=== PATIENT | female | born 1975 | race Asian ===

== ENCOUNTER 2017-06-18 17:04 | Emergency (ER) | payer MEDICARE, OTHER ==
[~2017-06-18 17:04] MED LIST: ACET325; AMLO5 PO; AMOX500 PO; ANTOXYBENA OT; AZAT50 PO; AZIT250 PO; CALACE667G PO; CALC.25 PO; CEPH500 PO; CINA30 PO; CIPR500 PO; CLON.2 PO; CYCL10 PO; Colace100 MG PO; Dulcolax5 MG PO; ERYT.5TO BOTHEYES; ESOM20 PO; FAMO20 PO; FISH1000 PO; FLUC100 PO; HYDACE25S PR; HYDACE5 PO; HYDCOR1TOA TOP; HYDPAM50 PO; HYDSUL200; HYDSUL200 PO; IBUP600 PO; IBUP800; IRON; LEVFLO250 PO; LEVFLO500 PO; LOPE2C PO; LOSA50 PO; MESA400ER PO; METO50 PO; MULVITMINE; MYCO250 PO; Norco 5-325 Ta1 EACH PO; OMEP20ER PO; ONDA4 PO; OXYACE5T PO; Opcon-A Eye Dro15 M1 OP; POTCHL10ER PO; PRAHYD1AE TOP; PRED1 PO; PRED10; PRED10 PO; PRED20 PO; PRED5; PRED5 PO; PROM25 PO; RXCLIN PO; RXHYDACE PO; SEVEC800 PO; STOMUL; SULTRIDS PO; TEMA15 PO; VELPHORO500 MG PO; VITAMIN D-32000 UNIT PO; Zofran Odt4 MG PO; [UNRECOGNIZED DRUG - REMARK]
[2017-08-02] MEDS ORDERED: OLME20 PO (07:48)
[2017-08-02] MEDS ORDERED: CINA30 PO (07:48)
[2017-08-02] MEDS ORDERED: NEPHRO-VITE RX1 EACH PO (07:49)
[2017-08-02] MEDS ORDERED: TEMA15 PO (07:50)
[2017-08-02] MEDS ORDERED: SEVEC800 PO (07:50)
[2017-08-02] MEDS ORDERED: TUMS DUAL ACTI1 EACH PO (07:51)
== END 2017-06-18 17:28 | disposition left against medical advice (07) ==
LOC: ER 17:04
DX: Z53.21 Procedure and treatment not carried out due to patient leaving prior to being seen by health care provider (principal)

== ENCOUNTER → 2017-06-20 | Outpatient (CLI) | payer MEDICARE, OTHER ==
[~2017-06-20] MED LIST changes: +NEPHRO-VITE RX1 EACH PO; +OLME20 PO; +TUMS DUAL ACTI1 EACH PO
== END | disposition home or self-care (01) ==
LOC: LAB 10:20
DX: Z32.00 Encounter for pregnancy test, result unknown (principal); R51 Headache
CPT/HCPCS: 84703; 85651

== ENCOUNTER → 2017-07-18 | Outpatient (CLI) | payer MEDICARE, OTHER ==
[2017-07-18 10:42] LABS: C-REACTIVE PROTEIN, EXT RANGE <0.290 mg/dL (0.000-0.300)
[2017-07-18 10:47] LABS: Thyroid Stimulating Hormone 0.494 uIU/mL (0.360-4.800)
== END | disposition home or self-care (01) ==
LOC: LAB 09:56
PROVIDERS: Internal Medicine Rheumatology
DX: M32.8 Other forms of systemic lupus erythematosus (principal); E03.9 Hypothyroidism, unspecified
CPT/HCPCS: 84443; 86140

== ENCOUNTER 2017-08-02 | Day surgery (SDC) | END 2017-08-02 11:34 | disposition home or self-care (01) ==

== ENCOUNTER → 2017-08-27 | Outpatient (CLI) | payer MEDICARE, OTHER | END | disposition home or self-care (01) | LOC: LAB 12:54 | DX: E07.9 Disorder of thyroid, unspecified (principal); R94.8 Abnormal results of function studies of other organs and systems | CPT/HCPCS: 84443 ==

== ENCOUNTER 2017-11-12 15:37 | Emergency (ER) | payer MEDICARE, OTHER ==
[~2017-11-12] VITALS: Ht 162.6 cm; Wt 49.9 kg
== END 2017-11-12 19:37 | disposition home or self-care (01) ==
LOC: ER 15:37
DX: E03.9 Hypothyroidism, unspecified (principal); Z88.2 Allergy status to sulfonamides; Z88.8 Allergy status to other drugs, medicaments and biological substances; Z91.09 Other allergy status, other than to drugs and biological substances; Z79.899 Other long term (current) drug therapy
CPT/HCPCS: 99282

== ENCOUNTER → 2017-11-12 | Outpatient (CLI) | payer MEDICARE, OTHER ==
[2017-11-12 13:05] LABS: Thyroxine (T4) 13.3 ug/dL (4.8-13.9)
[2017-11-12 13:28] LABS: Free Thyroxine Index 5.1 % (1.3-4.8)
== END ==
LOC: LAB SHORT 09:30 → LAB 09:30
PROVIDERS: Internal Medicine Nephrology
DX: E24.9 Cushing's syndrome, unspecified (principal); E05.90 Thyrotoxicosis, unspecified without thyrotoxic crisis or storm
CPT/HCPCS: 82533; 84436; 84443; 84479

== ENCOUNTER → 2017-11-26 | Outpatient (CLI) | payer MEDICARE, OTHER ==
[2017-11-27 13:10] LABS: COMPLEMENT C3, SERUM 77 mg/dL (82-167); COMPLEMENT C4, SERUM 15 mg/dL (14-44)
[2017-11-28 11:08] LABS: SMITH ANTIBODIES 1.5 AI (0.0-0.9)
[2017-11-28 12:03] LABS: Antinuclear Antibody Screen Positive (Negative)
[2017-11-30 12:58] LABS: ANA Pattern Homogenous
== END | disposition home or self-care (01) ==
LOC: LAB DAV 12:40
PROVIDERS: Internal Medicine Nephrology
DX: L65.9 Nonscarring hair loss, unspecified (principal)
CPT/HCPCS: 86038; 86039; 86160; 86225; 86235

== ENCOUNTER 2018-02-26 08:51 | Emergency (ER) | payer MEDICARE, OTHER ==
[~2018-02-26] VITALS: Ht 162.6 cm; Wt 49.9 kg
[2018-02-26 09:44] LABS: BASOPHILS ABSOLUTE AUTO 0.08 K/mm3 (0.00-0.23); BASOPHILS PERCENT AUTO 1 % (0-2); EOSINOPHILS ABSOLUTE AUTO 0.14 K/mm3 (0.00-0.68); EOSINOPHILS PERCENT AUTO 2 % (0-6); Hematocrit 31.3 % (33.0-51.0); IMMATURE GRAN ABSOLUTE AUTO 0.13 K/mm3 (0.00-0.10); IMMATURE GRAN PERCENT AUTO 2 % (0-1); LYMPHOCYTES PERCENT AUTO 28 % (21-46); MONOCYTES ABSOLUTE AUTO 0.68 K/mm3 (0.16-1.47); MONOCYTES PERCENT AUTO 9 % (4-13); Mean Corpuscular HGB 29.9 pg (26.0-34.0); Mean Corpuscular HGB Conc 31.9 g/dL (31.5-36.5); Mean Corpuscular Volume 93 fL (80-100); Mean Platelet Volume 10.4 fL (9.1-12.4); NEUTROPHILS ABSOLUTE AUTO 4.24 K/mm3 (1.96-9.15); NEUTROPHILS PERCENT AUTO 58 % (41-73); Platelet Count 259 K/mm3 (150-400); RDW Standard Deviation 47.5 fL (35.1-46.3); Red Blood Cell Count 3.35 M/mm3 (3.80-5.20); White Blood Cell Count 7.27 K/mm3 (4.00-11.30)
[2018-02-26 09:45] LABS: Alanine Aminotransfer (ALT/SGP 74 U/L (12-78); Albumin, Blood 3.4 g/dL (3.4-5.0); Albumin/Globulin Ratio 0.9 (0.8-1.8); Alk Phos 362 U/L (50-136); Anion Gap 10 mmol/L (6-16); Aspartate Aminotrans (AST/SGOT 37 U/L (12-37); Bilirubin, Total 0.2 mg/dL (0.1-1.0); Blood Urea Nitrogen 18 mg/dL (8-24); CO2, Blood 19 mmol/L (21-32); Calcium, Blood 8.7 mg/dL (8.5-10.1); Chloride, Blood 112 mmol/L (98-108); Creatinine, Blood 0.72 mg/dL (0.40-1.00); Globulin, Blood 3.8 g/dL (2.2-4.0); Glomerular Filtration Rate >60 (60-); Glucose, Blood 104 mg/dL (70-99); Sodium, Blood 141 mmol/L (136-145); Total Protein, Blood 7.2 g/dL (6.4-8.2); Troponin I <0.015 ng/mL (0.000-0.040)
[2018-02-26 09:54] LABS: Source, Urine Clean Catch
[2018-02-26 10:07] LABS: Bilirubin, Urine Neg (Neg); Blood, Urine Neg (Neg); Glucose Qualitative, Urine Neg (Neg); Ketones, Urine Neg (Neg); Leukocyte Esterase, Urine 2+ (Neg); Nitrite, Urine Neg (Neg); Protein, Urine Neg (Neg); Specific Gravity, Urine 1.015 (1.003-1.022); Urobilinogen, Urine NORM (Normal)
[2018-02-26 10:35] LABS: Appearance, Urine Clear (Clear); Color, Urine Yellow (P-Yellow)
[2018-02-26 10:37] LABS: Bacteria Rare /hpf; Red Blood Cells, Urine 0-2 /hpf (0-2); Squamous Epithelial Cells Mod /hpf (Few)
== END 2018-02-26 13:47 | disposition home or self-care (01) ==
LOC: ER 08:51
PROVIDERS: Emergency Medicine
DX: M94.0 Chondrocostal junction syndrome [Tietze] (principal); R07.89 Other chest pain; R07.81 Pleurodynia; Z88.2 Allergy status to sulfonamides; Z88.8 Allergy status to other drugs, medicaments and biological substances; Z79.899 Other long term (current) drug therapy; Z79.52 Long term (current) use of systemic steroids; I10 Essential (primary) hypertension
CPT/HCPCS: 36415; 71046; 71260; 80053; 81001; 84484; 85025; 85379; 87086; 93005; 93010; 96361; 96374; 99284-25; J3490; J7120; Q9967

== ENCOUNTER 2018-07-12 10:02 | Day surgery (SDC) | payer MEDICARE, OTHER ==
[2018-07-12] MEDS ORDERED: FAMO20 PO (11:43)
[2018-07-12] MEDS ORDERED: ALPR.25 PO (11:43)
[2018-07-12] MEDS ORDERED: SYNTHROID112 MCG PO (11:44)
[2018-07-12] MEDS ORDERED: METO25ER PO (11:44)
[2018-07-12] MEDS ORDERED: MYCO250 PO (11:45)
[2018-07-12] MEDS ORDERED: TACR1 PO (11:46)
[2018-07-12] MEDS ORDERED: VIRT-PHOS 250250 MG PO (11:46)
== END 2018-07-12 11:54 | disposition home or self-care (01) ==
LOC: ATC 10:02
DX: T86.11 Kidney transplant rejection (principal); T86.91 Unspecified transplanted organ and tissue rejection; Z91.041 Radiographic dye allergy status; Z88.2 Allergy status to sulfonamides
CPT/HCPCS: 96365; J2930; J7050

== ENCOUNTER 2018-07-13 09:58 | Day surgery (SDC) | payer MEDICARE, OTHER ==
[~2018-07-13 09:58] MED LIST changes: +ALPR.25 PO; +METO25ER PO; +SYNTHROID112 MCG PO; +TACR1 PO; +VIRT-PHOS 250250 MG PO
== END 2018-07-13 10:43 | disposition home or self-care (01) ==
LOC: ATC 09:58
DX: T86.11 Kidney transplant rejection (principal); I10 Essential (primary) hypertension; M32.9 Systemic lupus erythematosus, unspecified; E21.2 Other hyperparathyroidism
CPT/HCPCS: 96365; J2930; J7050

== ENCOUNTER 2018-07-14 07:36 | Day surgery (SDC) | payer MEDICARE, OTHER | END 2018-07-14 08:30 | disposition home or self-care (01) | LOC: ATC 07:36 | DX: T86.11 Kidney transplant rejection (principal) | CPT/HCPCS: 96365; J2930; J7050 ==

== ENCOUNTER → 2018-08-08 | Outpatient (CLI) | payer MEDICARE, OTHER ==
[2018-08-08 08:24] LABS: Sodium, Urine 55 mmol/L (20-110)
[2018-08-08 08:28] LABS: Microalbumin, Urine Quant. <5.000 mg/L (0.000-20.000); Protein, Urine Quantitative <5.0 mg/dL (0.0-11.9)
== END | disposition home or self-care (01) ==
LOC: LAB 07:34 → LAB SHORT 07:34
PROVIDERS: Internal Medicine Nephrology
DX: N18.3 Chronic kidney disease, stage 3 (moderate) (principal); D63.1 Anemia in chronic kidney disease; N25.81 Secondary hyperparathyroidism of renal origin; E55.9 Vitamin D deficiency, unspecified; E78.00 Pure hypercholesterolemia, unspecified; R76.9 Abnormal immunological finding in serum, unspecified; R94.5 Abnormal results of liver function studies; R94.6 Abnormal results of thyroid function studies; G60.9 Hereditary and idiopathic neuropathy, unspecified; D51.8 Other vitamin B12 deficiency anemias; D52.8 Other folate deficiency anemias; D50.9 Iron deficiency anemia, unspecified; Z94.0 Kidney transplant status
CPT/HCPCS: 36415; 82043; 84156; 84300

== ENCOUNTER → 2019-05-21 | Outpatient (CLI) | payer MEDICARE, OTHER ==
[2019-05-22 14:06] LABS: HPV 16 Negative (Negative); HPV 18 Negative (Negative); HPV OTHER HR TYPES Negative (Negative)
== END | disposition home or self-care (01) ==
LOC: LAB SHORT 12:22 → LAB 12:22
PROVIDERS: Obstetrics & Gynecology
DX: Z12.4 Encounter for screening for malignant neoplasm of cervix (principal)
CPT/HCPCS: 87624; G0123

== ENCOUNTER → 2020-01-06 | Outpatient (CLI) | payer MEDICARE, OTHER ==
[~2020-01-06] MED LIST changes: +ACETAMINOPHEN500 MG PO; +CALC.25; +CINACALCET HCL30 M1 PO; +METR500 PO; +MYCOPHENOLATE250 MG PO; +PREDNISONE5 MG PO; +TACROLIMUS1 MG PO
[2020-01-09 14:09] LABS: HPV 16 Negative (Negative); HPV 18 Negative (Negative); HPV OTHER HR TYPES Negative (Negative)
== END ==
LOC: LAB SHORT 14:50 → LAB 14:50
PROVIDERS: Physician Assistant
DX: Z01.419 Encounter for gynecological examination (general) (routine) without abnormal findings (principal); N93.9 Abnormal uterine and vaginal bleeding, unspecified; R82.998 Other abnormal findings in urine
CPT/HCPCS: 87086; 87624; G0123

== ENCOUNTER → 2020-07-12 | Outpatient (CLI) | payer MEDICARE, OTHER ==
[2020-07-12 09:58] LABS: Creatinine Urine 40.6 mg/dL (27.00-270.00); Microalbumin, Urine Quant. 16.9 mg/L (0.000-20.000); Protein, Urine Quantitative 7.4 mg/dL (0.0-11.9)
== END ==
LOC: LAB 05:00 → LAB SHORT 05:00
PROVIDERS: Internal Medicine Nephrology
DX: N18.30 Chronic kidney disease, stage 3 unspecified (principal); D63.1 Anemia in chronic kidney disease; N25.81 Secondary hyperparathyroidism of renal origin; E55.9 Vitamin D deficiency, unspecified; E78.00 Pure hypercholesterolemia, unspecified; R76.9 Abnormal immunological finding in serum, unspecified; R94.5 Abnormal results of liver function studies; R94.6 Abnormal results of thyroid function studies
CPT/HCPCS: 81050; 82043; 82570; 84156

== ENCOUNTER → 2020-12-23 | Outpatient (CLI) | payer MEDICARE, OTHER ==
[2020-12-23 21:04] LABS: Percent Saturation 17.3 % (15.0-50.0)
== END | disposition home or self-care (01) ==
LOC: LAB 19:38 → LAB SHORT 19:38
PROVIDERS: Internal Medicine Hematology & Oncology
DX: E61.1 Iron deficiency (principal)
CPT/HCPCS: 82728; 83540; 83550

== ENCOUNTER → 2021-12-21 | Outpatient (CLI) | payer OTHER | END | disposition home or self-care (01) | LOC: LAB 17:54 → LAB SHORT 17:54 | DX: N39.0 Urinary tract infection, site not specified (principal) | CPT/HCPCS: 87077; 87086; 87186 ==

== ENCOUNTER → 2022-03-26 | Outpatient (CLI) | payer OTHER | END | disposition home or self-care (01) | LOC: LAB SHORT 10:47 → LAB 10:47 | DX: J02.9 Acute pharyngitis, unspecified (principal) | CPT/HCPCS: 87081 ==

== ENCOUNTER → 2022-07-23 | Outpatient (CLI) | payer OTHER ==
[2022-07-24 22:19] LABS: Creatinine Urine 36.2 mg/dL (27.00-270.00); Protein, Urine Quantitative 116.9 mg/dL (0.0-11.9)
== END | disposition home or self-care (01) ==
LOC: LAB SHORT 18:00 → LAB 18:00
PROVIDERS: Internal Medicine Nephrology
DX: N18.30 Chronic kidney disease, stage 3 unspecified (principal); D63.1 Anemia in chronic kidney disease; N25.81 Secondary hyperparathyroidism of renal origin; E55.9 Vitamin D deficiency, unspecified; E78.00 Pure hypercholesterolemia, unspecified; R76.9 Abnormal immunological finding in serum, unspecified; R94.5 Abnormal results of liver function studies; R94.6 Abnormal results of thyroid function studies
CPT/HCPCS: 81050; 82043; 82570; 84156

== ENCOUNTER → 2023-01-01 | Outpatient (CLI) | payer OTHER ==
[2023-01-01 11:26] LABS: Protein, Urine Quantitative 50.2 mg/dL (0.0-11.9)
[2023-01-01 11:50] LABS: Creatinine Urine 41.7 mg/dL (27.00-270.00)
== END | disposition home or self-care (01) ==
LOC: LAB SHORT 08:06 → LAB FUT 12-13 16:15
PROVIDERS: Internal Medicine Nephrology
DX: N18.30 Chronic kidney disease, stage 3 unspecified (principal); D63.1 Anemia in chronic kidney disease; N25.81 Secondary hyperparathyroidism of renal origin; E78.00 Pure hypercholesterolemia, unspecified; E55.9 Vitamin D deficiency, unspecified; R76.9 Abnormal immunological finding in serum, unspecified; R94.5 Abnormal results of liver function studies; G60.9 Hereditary and idiopathic neuropathy, unspecified; Z94.0 Kidney transplant status
CPT/HCPCS: 81050; 82043; 82570; 84156

== ENCOUNTER → 2023-04-09 | Outpatient (CLI) | payer OTHER ==
[2023-04-09 19:12] LABS: Creatinine Urine 33.3 mg/dL (27.00-270.00); Protein, Urine Quantitative 182.1 mg/dL (0.0-11.9)
== END | disposition home or self-care (01) ==
LOC: LAB 16:35 → LAB SHORT 16:35 → LAB FUT 04-03 16:30
PROVIDERS: Internal Medicine Nephrology
DX: N18.2 Chronic kidney disease, stage 2 (mild) (principal); D63.1 Anemia in chronic kidney disease; N25.81 Secondary hyperparathyroidism of renal origin; E55.9 Vitamin D deficiency, unspecified; E78.00 Pure hypercholesterolemia, unspecified; R76.9 Abnormal immunological finding in serum, unspecified; R94.5 Abnormal results of liver function studies; R94.6 Abnormal results of thyroid function studies; Z94.0 Kidney transplant status
CPT/HCPCS: 81050; 82043; 82570; 84156

== ENCOUNTER 2023-06-11 16:36 | Emergency (ER) | payer OTHER ==
[~2023-06-11] VITALS: Ht 162.6 cm; Wt 63.5 kg
[2023-06-11 16:44] VITALS: BP 165/128
[2023-06-11 18:23] LABS: BASOPHILS ABSOLUTE AUTO 0.06 K/mm3 (0.00-0.23); BASOPHILS PERCENT AUTO 1 % (0-2); EOSINOPHILS PERCENT AUTO 3 % (0-6); Hematocrit 36.7 % (33.0-51.0); Hemoglobin 12.2 g/dL (11.5-16.0); IMMATURE GRAN ABSOLUTE AUTO 0.04 K/mm3 (0.00-0.10); IMMATURE GRAN PERCENT AUTO 0 % (0-1); LYMPHOCYTES ABSOLUTE AUTO 2.28 K/mm3 (0.84-5.20); LYMPHOCYTES PERCENT AUTO 23 % (21-46); MONOCYTES ABSOLUTE AUTO 0.71 K/mm3 (0.16-1.47); MONOCYTES PERCENT AUTO 7 % (4-13); Mean Corpuscular HGB 26.7 pg (26.0-34.0); Mean Corpuscular HGB Conc 33.2 g/dL (31.5-36.5); Mean Corpuscular Volume 80 fL (80-100); Mean Platelet Volume 11.5 fL (9.1-12.4); NEUTROPHILS ABSOLUTE AUTO 6.55 K/mm3 (1.96-9.15); NEUTROPHILS PERCENT AUTO 66 % (41-73); Platelet Count 298 K/mm3 (150-400); RDW Coefficient Variation 13.1 % (11.7-14.2); RDW Standard Deviation 37.5 fL (35.1-46.3); Red Blood Cell Count 4.57 M/mm3 (3.80-5.20); White Blood Cell Count 9.94 K/mm3 (4.00-11.30)
[2023-06-11 18:38] LABS: Albumin, Blood 3.2 g/dL (3.4-5.0); Albumin/Globulin Ratio 0.7 (0.8-1.8); Bilirubin, Total 0.3 mg/dL (0.1-1.0); Bun/Creatinine Ratio 28.2 (12.0-20.0); Calcium, Blood 10.4 mg/dL (8.5-10.1); Creatinine, Blood 1.49 mg/dL (0.40-1.00); Globulin, Blood 4.8 g/dL (2.2-4.0); Potassium, Blood 4.9 mmol/L (3.5-5.5)
[2023-06-11 19:07] LABS: Source, Urine Clean Catch
[2023-06-11 19:25] LABS: Bilirubin, Urine Neg (Neg); Blood, Urine 3+ (Neg); Glucose Qualitative, Urine Neg (Neg); Ketones, Urine Neg (Neg); Leukocyte Esterase, Urine Neg (Neg); Nitrite, Urine Neg (Neg); Protein, Urine 3+ (Neg); Specific Gravity, Urine 1.015 (1.003-1.022); Urobilinogen, Urine NORM (Normal)
[2023-06-11 19:54] LABS: Appearance, Urine Hazy (Clear); Color, Urine Pale Yellow (P-Yellow)
[2023-06-11 19:55] LABS: Squamous Epithelial Cells Rare /hpf (Few); White Blood Cells, Urine 0-2 /hpf (0-5)
[2023-06-11 19:56] LABS: Amorphous Light (0-Heavy); Bacteria Mod /hpf; Mucus Light (0-Heavy)
== END 2023-06-11 20:28 | disposition home or self-care (01) ==
LOC: ER 16:36
PROVIDERS: Emergency Medicine
DX: T82.868A Thrombosis due to vascular prosthetic devices, implants and grafts, initial encounter (principal); I74.2 Embolism and thrombosis of arteries of the upper extremities; Z88.2 Allergy status to sulfonamides; Z88.8 Allergy status to other drugs, medicaments and biological substances; Z79.899 Other long term (current) drug therapy; Z79.52 Long term (current) use of systemic steroids
CPT/HCPCS: 36415; 80053; 81001; 83605; 85025; 87040; 93971; 99284-25

== ENCOUNTER 2023-06-13 10:09 | Emergency (ER) | payer OTHER ==
[~2023-06-13] VITALS: Ht 162.6 cm; Wt 65.8 kg
[2023-06-13 10:19] VITALS: BP 158/107
[2023-06-13] MEDS ORDERED: Norco 5-325 Ta1 EACH PO (13:19)
== END 2023-06-13 13:37 | disposition home or self-care (01) ==
LOC: ER 10:09
DX: T82.868A Thrombosis due to vascular prosthetic devices, implants and grafts, initial encounter (principal); Z94.0 Kidney transplant status; Z88.2 Allergy status to sulfonamides; Z88.8 Allergy status to other drugs, medicaments and biological substances; Z79.899 Other long term (current) drug therapy
CPT/HCPCS: 99283

== ENCOUNTER → 2023-07-16 | Outpatient (CLI) | payer OTHER ==
[2023-07-16 19:37] LABS: Protein, Urine Quantitative 219.8 mg/dL (0.0-11.9)
== END | disposition home or self-care (01) ==
LOC: LAB SHORT 17:11
PROVIDERS: Internal Medicine Nephrology
DX: N18.30 Chronic kidney disease, stage 3 unspecified (principal); D63.1 Anemia in chronic kidney disease; N25.81 Secondary hyperparathyroidism of renal origin; E55.9 Vitamin D deficiency, unspecified; E78.00 Pure hypercholesterolemia, unspecified; R76.9 Abnormal immunological finding in serum, unspecified; R94.5 Abnormal results of liver function studies; R94.6 Abnormal results of thyroid function studies
CPT/HCPCS: 81050; 82043; 82570; 84156

== ENCOUNTER 2024-03-21 19:35 | Inpatient (IN) | payer OTHER ==
[~2024-03-21] VITALS: Ht 162.6 cm; Wt 59.4 kg
[~2024-03-21 19:35] MED LIST changes: -CALC.25; +VITAMIN D31250 MC2 PO
[2024-03-21] MEDS ORDERED: Ondansetron HCl 2 MG / ML 2ML Vial IV ONE ×2 (19:50→23:00)
[2024-03-21 20:10] LABS: BASOPHILS ABSOLUTE AUTO 0.06 K/mm3 (0.00-0.23); BASOPHILS PERCENT AUTO 1 % (0-2); EOSINOPHILS ABSOLUTE AUTO 0.35 K/mm3 (0.00-0.68); EOSINOPHILS PERCENT AUTO 5 % (0-6); Hematocrit 30.1 % (33.0-51.0); Hemoglobin 9.4 g/dL (11.5-16.0); IMMATURE GRAN ABSOLUTE AUTO 0.03 K/mm3 (0.00-0.10); IMMATURE GRAN PERCENT AUTO 0 % (0-1); LYMPHOCYTES PERCENT AUTO 21 % (21-46); MONOCYTES ABSOLUTE AUTO 0.43 K/mm3 (0.16-1.47); MONOCYTES PERCENT AUTO 6 % (4-13); Mean Corpuscular HGB 25.3 pg (26.0-34.0); Mean Corpuscular HGB Conc 31.2 g/dL (31.5-36.5); Mean Corpuscular Volume 81 fL (80-100); Mean Platelet Volume 10.9 fL (9.1-12.4); NEUTROPHILS ABSOLUTE AUTO 5.19 K/mm3 (1.96-9.15); NEUTROPHILS PERCENT AUTO 68 % (41-73); Platelet Count 337 K/mm3 (150-400); RDW Coefficient Variation 15.1 % (11.7-14.2); Red Blood Cell Count 3.72 M/mm3 (3.80-5.20); White Blood Cell Count 7.66 K/mm3 (4.00-11.30)
[2024-03-21 20:30] LABS: Albumin, Blood 3.2 g/dL (3.4-5.0); Albumin/Globulin Ratio 0.9 (0.8-1.8); Bilirubin, Total 0.4 mg/dL (0.1-1.0); Bun/Creatinine Ratio 16.1 (12.0-20.0); Calcium, Blood 9.9 mg/dL (8.5-10.1); Creatinine, Blood 2.24 mg/dL (0.40-1.00); Globulin, Blood 3.6 g/dL (2.2-4.0); Potassium, Blood 3.9 mmol/L (3.5-5.5); Total Protein, Blood 6.8 g/dL (6.4-8.2)
[2024-03-21] MEDS ORDERED: NS 1,000 ML IV SCH (22:20)
[2024-03-21] MEDS ORDERED: Morphine Sulfate 4 MG/1 ML Injection IV ONE (23:00)
[2024-03-21] MEDS ORDERED: FentaNYL Citrate 50 MCG/ML 2 ML Injection IV ONE (23:20)
[2024-03-21] MEDS ORDERED: K-Dur10 MEQ PO (23:41)
[2024-03-22] VITALS (11 sets, daily range): BP systolic 139–196; BP diastolic 82–121
[2024-03-22] MEDS ORDERED: Acetaminophen 500 MG Tab PO PRN (00:10)
[2024-03-22] MEDS ORDERED: Sodium Bicarb 8.4% 50 mEq Syringe IV ONE (01:00)
[2024-03-22] MEDS ORDERED: Ondansetron 4 MG TAB PO PRN (01:20)
[2024-03-22] MEDS ORDERED: FLU VACC TS2024-25(6MOS UP)/PF 45 MCG/0.5 ML SYRINGE IM SCH (01:20)
[2024-03-22] MEDS ORDERED: Magnesium Hydroxide Conc 10 ML UDC PO PRN (01:20)
[2024-03-22] MEDS ORDERED: Acetaminophen 325 MG TABLET PO PRN (01:25)
[2024-03-22] MEDS ORDERED: NS 1,000 ML IV SCH (01:25)
[2024-03-22] MEDS ORDERED: HydrALAZINE HCl 20 MG / ML 1ML Vial IV PRN ×2 (02:15→12:00)
[2024-03-22] MEDS ORDERED: FentaNYL Citrate 50 MCG/ML 2 ML Injection IV PRN (03:00)
[2024-03-22] MEDS ORDERED: HydrALAZINE HCl 20 MG / ML 1ML Vial IV ONE (04:10)
[2024-03-22] MEDS ORDERED: Labetalol HCL 5 MG/ML 4ML Injection (Single Dose) IV PRN ×2 (05:20→11:55)
[2024-03-22] MEDS ORDERED: Levothyroxine Sodium 0.112 MG Tab PO SCH (06:00)
[2024-03-22] MEDS ORDERED: SODIUM BICARB IV STA (06:27)
[2024-03-22] MEDS ORDERED: SODIUM CHLORIDE 0.45% IV STA (06:27)
--- NOTE | 2024-03-22 06:43 | NUR ---
Shift Summary Pt arrived to this unit from the ED for LUQ pain and N/V. It is possibly renal related, she has a hx of kidney cancer and elevated creatinine. She also has elevated lipase. Her BP was elevated upon arrival, gave PRN hydralazine and 1 hour later it remained the same at 185/115. I called the hospitalist who ordered another 1 time dose of hydralazine and then later ordered a PRN IV labetolol. Pt has been no nautious to keep down pills but she is feeling better this AM. She took Tylenol for a headache and hasn't had emesis since. She is now on Tele running sinus tach, her heart rate has been between 90-120 all night. She is AOX4 and independent in the room. She has a new order for IV Sodium Bicarb, awaiting arrival from pharmacy.
[2024-03-22 08:01] LABS: BASOPHILS ABSOLUTE AUTO 0.03 K/mm3 (0.00-0.23); BASOPHILS PERCENT AUTO 1 % (0-2); EOSINOPHILS ABSOLUTE AUTO 0.07 K/mm3 (0.00-0.68); EOSINOPHILS PERCENT AUTO 1 % (0-6); Hematocrit 26.4 % (33.0-51.0); Hemoglobin 8.2 g/dL (11.5-16.0); IMMATURE GRAN ABSOLUTE AUTO 0.02 K/mm3 (0.00-0.10); IMMATURE GRAN PERCENT AUTO 0 % (0-1); LYMPHOCYTES ABSOLUTE AUTO 0.91 K/mm3 (0.84-5.20); LYMPHOCYTES PERCENT AUTO 15 % (21-46); MONOCYTES PERCENT AUTO 5 % (4-13); Mean Corpuscular HGB 24.7 pg (26.0-34.0); Mean Corpuscular HGB Conc 31.1 g/dL (31.5-36.5); Mean Corpuscular Volume 80 fL (80-100); Mean Platelet Volume 11.1 fL (9.1-12.4); NEUTROPHILS ABSOLUTE AUTO 4.83 K/mm3 (1.96-9.15); NEUTROPHILS PERCENT AUTO 78 % (41-73); Platelet Count 281 K/mm3 (150-400); RDW Coefficient Variation 15.2 % (11.7-14.2); RDW Standard Deviation 43.8 fL (35.1-46.3); Red Blood Cell Count 3.32 M/mm3 (3.80-5.20); White Blood Cell Count 6.16 K/mm3 (4.00-11.30)
[2024-03-22 08:06] LABS: Albumin, Blood 2.6 g/dL (3.4-5.0); Albumin/Globulin Ratio 0.9 (0.8-1.8); Bilirubin, Total 0.3 mg/dL (0.1-1.0); Bun/Creatinine Ratio 16.4 (12.0-20.0); Calcium, Blood 9.2 mg/dL (8.5-10.1); Creatinine, Blood 2.44 mg/dL (0.40-1.00); Globulin, Blood 2.8 g/dL (2.2-4.0); Potassium, Blood 3.8 mmol/L (3.5-5.5); Total Protein, Blood 5.4 g/dL (6.4-8.2)
[2024-03-22] MEDS ORDERED: Famotidine 20 MG Tab PO ONE (09:00)
[2024-03-22] MEDS ORDERED: Tacrolimus 1 MG Cap PO SCH (09:00)
[2024-03-22] MEDS ORDERED: Potassium Chloride 10 Meq Tablet SA PO SCH (09:00)
[2024-03-22] MEDS ORDERED: Enoxaparin 30 MG/0.3 ML SYR SC SCH (09:00)
[2024-03-22] MEDS ORDERED: PredniSONE 5 MG Tab PO SCH (09:00)
[2024-03-22] MEDS ORDERED: Metoprolol Succinate 25 MG TABCR PO SCH ×2 (09:00→21:00)
--- NOTE | 2024-03-22 09:45 | NUR ---
PATIENT-PROVIDED MED LIST: BIOTIN 5,000MCG BID METOPROLOL SUCC 25MG QD K-PHOS MEUTRAL 250MG QD NIFEDIPINE ER 30MG QD. K CHLORIDE ER 10MEQ: 1 TID-QID MYCOPHENOLATE 500M QAM, 1 QHS PREDNISONE 5MG QD TACROLIMUS 1MG IR FAMOTIDINE 20MG QD SODIUM BICARB 650 TID VITAMIN D 1250MCG QWEEK ATORVASTATIN 20MG QD x3 MONTHS MEGESTRON ACET 40MG/mL SUSP - 5mL PO TID BENLYSTA (BELIMUMBAB) INJECTION 200MG/mL
[2024-03-22] MEDS ORDERED: MYCO250 PO (10:08)
[2024-03-22] MEDS ORDERED: MERIBIN5 MG PO (10:10)
[2024-03-22] MEDS ORDERED: ADALAT CC30 M1 PO (10:11)
[2024-03-22] MEDS ORDERED: K-Phos Origina500 MG PO (10:11)
[2024-03-22] MEDS ORDERED: ATOR20 PO (10:12)
[2024-03-22] MEDS ORDERED: MEGE40T PO (10:13)
[2024-03-22] MEDS ORDERED: BENLYSTA200 MG/1 M SC (10:14)
[2024-03-22] MEDS ORDERED: SODBIC650 PO (10:15)
[2024-03-22] MEDS ORDERED: NIFEdipine 30 MG TabCR PO SCH (12:05)
[2024-03-22] MEDS ORDERED: Ciprofloxacin 500 MG Tab PO SCH (12:45)
[2024-03-22] MEDS ORDERED: Sodium Bicarb 8.4% Inj 150 MEQ in Dextrose 5% 1,000 ML IV SCH (13:00)
--- NOTE | 2024-03-22 13:00 | NUR ---
1145 DR NAIR AT BEDSIDE TO EVAL PT- INFORMED OF ELEVATED BP AND HX OF KIDNEY TX. ORDER PLACED FOR CONSLT NEPH, ANDER CALLED. CHANGES MADE TO INCREASE PRN PROPANOLOL AND HYDRALAZINE AND TO ADMIN THESE MEDS TO BRING BP DOWN. DR WORTHINGTON ARRIVED AT BEDSIED AROUND 1230, ORDERS RECEIVED FOR NEW IVF AND TO START 24HR UUN ALONG WITH A MYRIAD OF LABS AND MED CHANGES. WILL F/U WITH ALL CHANGES
[2024-03-22] MEDS ORDERED: CloNIDine 0.1 MG Tab PO SCH (14:00)
--- NOTE | 2024-03-22 16:55 | NUR ---
CALLED DR WORTHINGTON 1651- NOTIFIED HIM THAT PT'S BP HAS STABALIZED, GAVE HIM THE BLADDER SCAN INFO 124ML. INFORMED HIM OF THE PT'S ALLERGY TO CIPRO, DC'D THIS MED AND STARTING A NEW IV MED. NEW PARAMETER ORDERS FOR PRN HYDRALAZINE AND OR LABETELOL
[2024-03-22] MEDS ORDERED: Pantoprazole Sodium 40 MG Tab PO SCH (17:00)
[2024-03-22] MEDS ORDERED: Aztreonam 1,000 MG in NS 50 ML IV SCH (17:15)
--- NOTE | 2024-03-22 18:21 | NUR ---
SUMMARY- PT A/O X4, INDEPENDANT IN ROOM. ANDER COUSULTED. PT HAS IV D5W BICARB AT 75/HR. PT HAD ONE LOOSE SMALL BROWN STOOL, SENT FOR GI PANAL TESTING/ PT DENIES ABD PAIN, NO NAUSEA TODAY. ADVANCED DIET TO FULL THAN TO GEN FOR DINNER. TOLERATED MANACOTTI . PT STAETES SHE FEELS LIKE SHE HAS TO HAVE BM AND CANT LIKE SHE MAY BE CONSTIPATED. TOTAL VOID LAST 12 HRS WAS 500ML. STARTED ON 24HR UUN 1500. BP HAD BEEN ELEATED ALL DAY, FINALLY CAME DOWN TO REG LIMITS AROUND 1600 AFTER CLONODINE STARTED. PT TO HAVE RENAL DUPLEX U.S DONE IN AM, PT TO BE NPO EXCEPT FOR WATER AFTER MIDNIGHT. WILL REPORT TO SADNIP KRISHNAMURTHY
[2024-03-22 19:41] LABS: Adenovirus F 40/41 Not Detected (NOT DETECT); Astrovirus Not Detected (NOT DETECT); Campylobacter Sp Not Detected (NOT DETECT); Cryptosporidium Not Detected (NOT DETECT); Cyclospora Cayetanensis Not Detected (NOT DETECT); E. Coli O157 Not Detected (NOT DETECT); Entamoeba Histolytica Not Detected (NOT DETECT); Enteroaggregative E. coli-EAEC Not Detected (NOT DETECT); Enteropathogenic E. coli-EPEC Not Detected (NOT DETECT); Enterotoxigenic E. coli-ETEC Not Detected (NOT DETECT); Giardia Lamblia Not Detected (NOT DETECT); Norovirus GI/GII Not Detected (NOT DETECT); Plesiomonas Shigelloides Not Detected (NOT DETECT); Rotavirus A Not Detected (NOT DETECT); Salmonella Sp Not Detected (NOT DETECT); Sapovirus Not Detected (NOT DETECT); Shiga Toxin-prod E. coli-STEC Not Detected (NOT DETECT); Shigella/Enteroin E. coli-EIEC Not Detected (NOT DETECT); Vibrio Cholerae Not Detected (NOT DETECT); Vibrio Sp Not Detected (NOT DETECT); Yersinia Enterocolitica Not Detected (NOT DETECT)
[2024-03-22] MEDS ORDERED: Mycophenolate Mofetil 250 MG Cap PO SCH (21:00)
[2024-03-22] MEDS ORDERED: Losartan Potassium 25 MG Tab PO SCH (21:00)
[2024-03-23] VITALS (7 sets, daily range): BP systolic 113–186; BP diastolic 72–103
[2024-03-23] MEDS ORDERED: Vancomycin HCl 125 MG Cap PO SCH
[2024-03-23 05:22] LABS: BASOPHILS ABSOLUTE AUTO 0.04 K/mm3 (0.00-0.23); BASOPHILS PERCENT AUTO 1 % (0-2); EOSINOPHILS ABSOLUTE AUTO 0.15 K/mm3 (0.00-0.68); EOSINOPHILS PERCENT AUTO 3 % (0-6); Hematocrit 22.4 % (33.0-51.0); Hemoglobin 7.1 g/dL (11.5-16.0); IMMATURE GRAN ABSOLUTE AUTO 0.03 K/mm3 (0.00-0.10); IMMATURE GRAN PERCENT AUTO 1 % (0-1); LYMPHOCYTES ABSOLUTE AUTO 1.77 K/mm3 (0.84-5.20); LYMPHOCYTES PERCENT AUTO 32 % (21-46); MONOCYTES ABSOLUTE AUTO 0.46 K/mm3 (0.16-1.47); MONOCYTES PERCENT AUTO 8 % (4-13); Mean Corpuscular HGB Conc 31.7 g/dL (31.5-36.5); Mean Corpuscular Volume 79 fL (80-100); Mean Platelet Volume 11.3 fL (9.1-12.4); NEUTROPHILS ABSOLUTE AUTO 3.15 K/mm3 (1.96-9.15); NEUTROPHILS PERCENT AUTO 56 % (41-73); Platelet Count 266 K/mm3 (150-400); RDW Standard Deviation 43.2 fL (35.1-46.3); Red Blood Cell Count 2.84 M/mm3 (3.80-5.20)
[2024-03-23 05:55] LABS: Magnesium, Blood 1.4 mg/dL (1.6-2.4); Uric Acid, Blood 9.2 mg/dL (2.6-6.0)
[2024-03-23 06:04] LABS: Albumin, Blood 2.5 g/dL (3.4-5.0); Albumin/Globulin Ratio 0.9 (0.8-1.8); Bilirubin, Total 0.2 mg/dL (0.1-1.0); Bun/Creatinine Ratio 16.1 (12.0-20.0); Calcium, Blood 9.1 mg/dL (8.5-10.1); Creatinine, Blood 2.79 mg/dL (0.40-1.00); Globulin, Blood 2.7 g/dL (2.2-4.0); Potassium, Blood 3.1 mmol/L (3.5-5.5); Thyroid Stimulating Hormone 0.719 uIU/mL (0.360-4.800); Total Protein, Blood 5.2 g/dL (6.4-8.2)
[2024-03-23] MEDS ORDERED: Potassium Chl 20MEQ/Water100ML 100 ML IV STA (08:10)
[2024-03-23] MEDS ORDERED: Mag Sulfate 1 GM/D5% 100ML 100 ML IV STA (08:10)
[2024-03-23 08:23] LABS: Cortisol, AM 7.8 ug/dL (6.7-22.6)
[2024-03-23] MEDS ORDERED: Losartan Potassium 25 MG Tab PO SCH (09:00)
[2024-03-23] MEDS ORDERED: Mycophenolate Mofetil 250 MG Cap PO SCH (09:00)
[2024-03-23 13:01] LABS: Albumin, Blood 2.6 g/dL (3.4-5.0); Anion Gap 10 mmol/L (3-11); Blood Urea Nitrogen 41 mg/dL (8-24); Bun/Creatinine Ratio 14.9 (12.0-20.0); CO2, Blood 23 mmol/L (21-32); Calcium, Blood 8.9 mg/dL (8.5-10.1); Chloride, Blood 109 mmol/L (98-108); Creatinine, Blood 2.76 mg/dL (0.40-1.00); Glomerular Filtration Rate 21 (60-); Glucose, Blood 149 mg/dL (70-99); Phosphorus, Blood 2.3 mg/dL (2.5-4.9); Potassium, Blood 3.8 mmol/L (3.5-5.5); Sodium, Blood 138 mmol/L (136-145)
[2024-03-23] MEDS ORDERED: Sodium Phosphate 10 MM in Dextrose 5% 250 ML IV ONE (14:10)
[2024-03-23] MEDS ORDERED: Famotidine 20 MG Tab PO SCH (14:52)
[2024-03-23] MEDS ORDERED: Darbepoetin Alfa in Polysorbat 25 MCG/0.42 ML Syringe SC SCH (16:00)
[2024-03-23 16:19] LABS: Protein, Urine Quantitative 46.7 mg/dL (0.0-11.9)
--- NOTE | 2024-03-23 17:49 | NUR ---
SUMMARY- PT A/O X4, INDEPENDANT INTO BATHROOM. DENIES ABD PAIN OR NAUSEA. STARTED ON VANC PO FOR C DIFF INFECTION. HAD NO BM'S TODAY. PT TOLERATING FOOD AND FLUIDS.DR WORTHINGOTN MANAGING IVF AND ELECTROLYTES- NAHCO3 AT 75ML/HR. NA PHOS, MG AND KCL REPOACED TODAY. BLOOD PRESURES MUCH BETTER CONTROLLED WITH ORAL MEDS, NO PRN'S NEEDED TODAY. AT BEDSIDE MOST OF THE DAY, SUPPORTIVE IN CARE
[2024-03-24] VITALS (8 sets, daily range): BP systolic 43–192; BP diastolic 69–103
[2024-03-24 05:09] LABS: Hematocrit 21.5 % (33.0-51.0); Hemoglobin 6.8 g/dL (11.5-16.0)
[2024-03-24 05:34] LABS: Albumin, Blood 2.4 g/dL (3.4-5.0); Anion Gap 9 mmol/L (3-11); Blood Urea Nitrogen 38 mg/dL (8-24); Bun/Creatinine Ratio 14.3 (12.0-20.0); CO2, Blood 27 mmol/L (21-32); Calcium, Blood 8.7 mg/dL (8.5-10.1); Chloride, Blood 107 mmol/L (98-108); Creatinine, Blood 2.65 mg/dL (0.40-1.00); Glomerular Filtration Rate 22 (60-); Glucose, Blood 111 mg/dL (70-99); Magnesium, Blood 1.8 mg/dL (1.6-2.4); Phosphorus, Blood 3.1 mg/dL (2.5-4.9); Potassium, Blood 3.2 mmol/L (3.5-5.5); Sodium, Blood 140 mmol/L (136-145)
--- NOTE | 2024-03-24 06:31 | NUR ---
Patient alert and oriented, VSS, resting comfortably in bed overnight. PRN labetalol given once per parameters, tolerated well. Bicarb drip maintained as ordered to left forearm PIV. Patient ambulating to restroom independently for needs. Old fistula to right upper arm in place, thrill palpable, per patient fistula has not been used in many years and did not work well prior to renal transplant.
[2024-03-24] MEDS ORDERED: NS 1,000 ML IV SCH (07:50)
[2024-03-24] MEDS ORDERED: Potassium Chloride 10 Meq Tablet SA PO ONE (07:50)
[2024-03-24] MEDS ORDERED: Lactobacil 2-S.Thermo-Bifido 1 1 Cap PO SCH (09:00)
[2024-03-24 10:14] LABS: Percent Saturation 20.7 % (15.0-50.0)
[2024-03-24] MEDS ORDERED: NS 500 ML IV SCH (11:15)
[2024-03-24] MEDS ORDERED: Heparin Sodium,Porcine 5,000 UNIT/0.5 ML SDV SC SCH (21:00)
[2024-03-25 00:51] LABS: TACROLIMUS BY HPLC-MS/MS 4.4 ng/mL
[2024-03-25 03:08] VITALS: BP 150/95
--- NOTE | 2024-03-25 04:04 | NUR ---
SHIFT SUMMARY PT IS A&O X4, ABLE TO MAKE HER NEEDS KNOWN AND COOPERATIVE WITH CARE. DAUGHTER SPENDING THE NIGHT BY THE BEDSIDE. FIANCE BY THE BEDSIDE @HS ANSWERING QUESTIONS ON PT'S BEHAF. TELE: SINUS TACH @101, BP ELEVATED. PRN HYDRAZALINE IV ADMINISTERED WITH GOOD EFFECTIVNESS. TELE: SR@70. DURING EARLY AM HRS, PT C/O SOB. O2 99% ON RA. PT DESCRIBES "BEING ASLEEP, THEN WOKEN UP WITH A FEELING OF NOT BEING ABLE TO BREATHE." VSS. O2 0.5L VIA NASAL CANNULA FOR COMFORT PER PT REQUEST. CONTINUING PT EDUCATION R/T LUPUS, FE LABS, PREVIOUS SHIFT RBC TRANSFUSION. PT REQUESTING RESULTS FOR CHEST XRAY. PT REPORTS POSSIBLE ANXIETY R/T SOB. PT C/O 01/25 TORO. PRN PO TYLENOL EFFECTIVE PER FACE SCALE. PT REPORTS NO BM SINCE Sunday03/23/24, DENIES ABDOMINAL PAIN/DISCOMFORT. CALL LIGHT W/I REACH, BED AT THE LOWEST POSITION HOB>30 DEGREES FOR COMFORT WITH O2.
[2024-03-25 06:01] LABS: BASOPHILS ABSOLUTE AUTO 0.05 K/mm3 (0.00-0.23); BASOPHILS PERCENT AUTO 1 % (0-2); EOSINOPHILS ABSOLUTE AUTO 0.13 K/mm3 (0.00-0.68); EOSINOPHILS PERCENT AUTO 2 % (0-6); Hematocrit 27.7 % (33.0-51.0); Hemoglobin 8.6 g/dL (11.5-16.0); IMMATURE GRAN ABSOLUTE AUTO 0.04 K/mm3 (0.00-0.10); IMMATURE GRAN PERCENT AUTO 1 % (0-1); LYMPHOCYTES ABSOLUTE AUTO 1.16 K/mm3 (0.84-5.20); LYMPHOCYTES PERCENT AUTO 19 % (21-46); MONOCYTES ABSOLUTE AUTO 0.61 K/mm3 (0.16-1.47); MONOCYTES PERCENT AUTO 10 % (4-13); Mean Corpuscular HGB 25.5 pg (26.0-34.0); Mean Corpuscular Volume 82 fL (80-100); Mean Platelet Volume 11.2 fL (9.1-12.4); NEUTROPHILS ABSOLUTE AUTO 4.14 K/mm3 (1.96-9.15); NEUTROPHILS PERCENT AUTO 68 % (41-73); Platelet Count 250 K/mm3 (150-400); RDW Coefficient Variation 14.6 % (11.7-14.2); RDW Standard Deviation 43.4 fL (35.1-46.3); Red Blood Cell Count 3.37 M/mm3 (3.80-5.20); White Blood Cell Count 6.13 K/mm3 (4.00-11.30)
[2024-03-25 06:35] LABS: Albumin, Blood 2.7 g/dL (3.4-5.0); Anion Gap 12 mmol/L (3-11); Blood Urea Nitrogen 31 mg/dL (8-24); Bun/Creatinine Ratio 11.9 (12.0-20.0); CO2, Blood 23 mmol/L (21-32); Calcium, Blood 9.6 mg/dL (8.5-10.1); Chloride, Blood 108 mmol/L (98-108); Creatinine, Blood 2.61 mg/dL (0.40-1.00); Glomerular Filtration Rate 22 (60-); Glucose, Blood 110 mg/dL (70-99); Magnesium, Blood 1.7 mg/dL (1.6-2.4); Phosphorus, Blood 2.8 mg/dL (2.5-4.9); Potassium, Blood 3.8 mmol/L (3.5-5.5); Sodium, Blood 139 mmol/L (136-145)
[2024-03-25] MEDS ORDERED: NS 1,000 ML IV SCH (07:50)
[2024-03-25 08:14] VITALS: BP 166/96
[2024-03-25 11:17] VITALS: BP 181/97
[2024-03-25] MEDS ORDERED: CATAPRES0.1 MG PO (12:40)
[2024-03-25] MEDS ORDERED: LEVSOD112 PO (12:42)
[2024-03-25] MEDS ORDERED: LOSA25 PO (12:43)
[2024-03-25] MEDS ORDERED: VANCOCIN HCL125 MG PO (12:45)
[2024-03-25] MEDS ORDERED: VISBIOME 112.51 EACH PO (12:45)
[2024-03-25 13:00] VITALS: BP 159/98
--- NOTE | 2024-03-25 13:15 | NUR ---
DISCHARGE NOTE PATIENT A/OX4, ABLE TO MAKE NEEDS KNOWN. ANXIOUS AND STATES HAS HAD TROUBLE SLEEPING DUE TO ANXIETY. PATIENT EDUCATED TO SPEAK WITH PRIMARY CARE PROVIDER REGARDING ANXIETY AND SHE STATES SHE HAS IN THE PAST, BUT NOTHING WAS DONE. PATIENT EDUCATED TO ADVOCATE FOR HERSELF AND DISCUSS HER CONCERNS THOROUGHLY WITH HER PCP AND DISCUSS THAT ANXIETY HAS BEEN DISRUPTING HER SELF. PATIENT AND SPOUSE AGREEABLE TO PLAN. DISCHARGE INSTRUCTIONS DISCUSSED INCLUDING MEDICATIONS AND FOLLOW UP APPOINTMENTS, PATIENT AND SPOUSE AGREEABLE AND STATE UNDERSTANDING. TELEMETRY AND PIV REMOVED PRIOR TO DISCHARGE. PATIENT ASSISTED TO FAMILY VEHICLE VIA WHEELCHAIR BY THIS RN. NO OTHER CONCERNS AT THIS TIME.
[2024-03-25 13:51] LABS: CMV QNT BY NAAT, PL LOG IU/ML Not Quantified; CMV QNT BY NAAT, PLASMA INTERP Detected (Not Detected); CMV QNT BY NAAT, PLASMA IU/ML Not Quantified IU/mL
[2024-03-25 21:28] LABS: CMV ANTIBODY IGG >10.00 U/mL (<=0.70); CMV ANTIBODY IGM <8.0 AU/mL (<=29.9)
[2024-03-27 01:51] LABS: CREATININE,URINE - PER 24H 1092 mg/d (700-1600); CREATININE,URINE - PER VOLUME 78 mg/dL; HOURS COLLECTED 24 hr; METANEPHRINE,UR - RATIO TO CRT 146 ug/g CRT (0-300); METANEPHRINE,URINE - PER 24H 160 ug/d (36-229); METANEPHRINE,URN - PER VOLUME 114 ug/L; NORMETANEPHRINE,U - PER VOLUME 143 ug/L; NORMETANEPHRINE,URN - PER 24H 200 ug/d (95-650); NORMETANEPHRINE,URN/CRT RATIO 183 ug/g CRT (0-400); TOTAL VOLUME 1400 mL
[2024-03-27 05:48] LABS: ALDOSTERONE 6.8 ng/dL; ALDOSTERONE/RENINACTIVITY CALC 2.4 ratio (<=25.0); RENIN ACTIVITY 2.9 ng/mL/hr
[2024-03-27 12:39] LABS: CREATININE, URINE - PER 24H 1092 mg/d (700-1600); CREATININE, URINE - PER VOLUME 78 mg/dL; HOURS COLLECTED 24 hr; TOTAL VOLUME 1400 mL; VANILLYLMANDELIC ACID -PER 24H 3.2 mg/d (0.0-7.0); VANILLYLMANDELIC ACID -PER VOL 2.3 mg/L; VANILLYLMANDELIC ACID -RAT CRT 3 mg/gCR (0-6)
== END 2024-03-25 13:16 | disposition home or self-care (01) | DRG 372 ==
LOC: ER 19:35 → MEDS 19:36
PROVIDERS: Family Medicine; Internal Medicine; Internal Medicine Nephrology; Physician Assistant; Student in an Organized Health Care Education/Training Program; ADMIT Internal Medicine
PROC: 30233N1 Transfusion of Nonautologous Red Blood Cells into Peripheral Vein, Percutaneous Approach (ICD-10-PCS; principal; 2024-03-24)
DX: A04.72 Enterocolitis due to Clostridium difficile, not specified as recurrent (principal); D62 Acute posthemorrhagic anemia; E87.20 Acidosis, unspecified; N17.9 Acute kidney failure, unspecified; Z94.0 Kidney transplant status; N25.81 Secondary hyperparathyroidism of renal origin; R18.8 Other ascites; I12.9 Hypertensive chronic kidney disease with stage 1 through stage 4 chronic kidney disease, or unspecified chronic kidney disease; E03.9 Hypothyroidism, unspecified; E87.6 Hypokalemia; E83.39 Other disorders of phosphorus metabolism; E83.42 Hypomagnesemia; E79.0 Hyperuricemia without signs of inflammatory arthritis and tophaceous disease; N18.9 Chronic kidney disease, unspecified; D63.1 Anemia in chronic kidney disease; E88.09 Other disorders of plasma-protein metabolism, not elsewhere classified; M32.9 Systemic lupus erythematosus, unspecified; Z98.890 Other specified postprocedural states; Z79.899 Other long term (current) drug therapy; Z88.2 Allergy status to sulfonamides; Z88.8 Allergy status to other drugs, medicaments and biological substances; Z91.041 Radiographic dye allergy status; Z87.19 Personal history of other diseases of the digestive system; Z79.890 Hormone replacement therapy; Z90.79 Acquired absence of other genital organ(s)
CPT/HCPCS: 36415; 36430; 71045; 74176; 80053; 80069; 80197; 82088; 82533; 82607; 82728; 82746; 83540; 83550; 83690; 83735; 83835; 83880; 83970; 84100; 84156; 84244; 84443; 84550; 84585; 85014; 85018; 85025; 86644; 86645; 86850; 86900; 86901; 86923; 87324; 87497; 87507; 93975; 96361; 96372; 96374; 96375; 96376; 99285-25; A9270; G0378; J0360; J0881; J1644; J1650; J2270; J2405; J3010; J3475; J3480; J7030; J7060; J7070; J7507; J7512; J7517; P9016

== ENCOUNTER → 2024-08-10 | Outpatient (CLI) | payer OTHER ==
[~2024-08-10] MED LIST changes: +ADALAT CC30 M1 PO; +ATOR20 PO; +BENLYSTA200 MG/1 M SC; +CATAPRES0.1 MG PO; +K-Dur10 MEQ PO; +K-Phos Origina500 MG PO; +LEVSOD112 PO; +LOSA25 PO; +MEGE40T PO; +MERIBIN5 MG PO; +SODBIC650 PO; +VANCOCIN HCL125 MG PO; +VISBIOME 112.51 EACH PO
[2024-08-11 15:36] LABS: Creatinine Urine 24.4 mg/dL (27.00-270.00); Protein, Urine Quantitative 43.8 mg/dL (0.0-11.9)
== END ==
LOC: LAB SHORT 10:00 → LAB 10:00 → LAB SHORT 08-11 10:00
PROVIDERS: Internal Medicine Nephrology
DX: N18.2 Chronic kidney disease, stage 2 (mild) (principal); D63.1 Anemia in chronic kidney disease; N25.81 Secondary hyperparathyroidism of renal origin; E55.9 Vitamin D deficiency, unspecified; E78.00 Pure hypercholesterolemia, unspecified; R76.9 Abnormal immunological finding in serum, unspecified; R94.5 Abnormal results of liver function studies; R94.6 Abnormal results of thyroid function studies; D51.8 Other vitamin B12 deficiency anemias; D52.8 Other folate deficiency anemias; D50.9 Iron deficiency anemia, unspecified; Z94.0 Kidney transplant status
CPT/HCPCS: 82043; 82570; 84156

== ENCOUNTER 2024-12-28 01:55 | Emergency (ER) | payer OTHER ==
[~2024-12-28] VITALS: Ht 162.6 cm; Wt 54.4 kg
[2024-12-28 04:16] LABS: BASOPHILS ABSOLUTE AUTO 0.02 K/mm3 (0.00-0.23); BASOPHILS PERCENT AUTO 0 % (0-2); EOSINOPHILS ABSOLUTE AUTO 0.06 K/mm3 (0.00-0.68); EOSINOPHILS PERCENT AUTO 1 % (0-6); Hematocrit 28.1 % (33.0-51.0); Hemoglobin 8.4 g/dL (11.5-16.0); IMMATURE GRAN ABSOLUTE AUTO 0.03 K/mm3 (0.00-0.10); IMMATURE GRAN PERCENT AUTO 0 % (0-1); LYMPHOCYTES ABSOLUTE AUTO 0.52 K/mm3 (0.84-5.20); LYMPHOCYTES PERCENT AUTO 5 % (21-46); MONOCYTES ABSOLUTE AUTO 0.41 K/mm3 (0.16-1.47); MONOCYTES PERCENT AUTO 4 % (4-13); Mean Corpuscular HGB Conc 29.9 g/dL (31.5-36.5); Mean Corpuscular Volume 86 fL (80-100); NEUTROPHILS ABSOLUTE AUTO 9.68 K/mm3 (1.96-9.15); NEUTROPHILS PERCENT AUTO 90 % (41-73); NRBC ABSOLUTE 0.00 K/mm3 (0.00-0.02); NRBC Auto 0.0 /100 WBC (0.0-0.2); Platelet Count 189 K/mm3 (150-400); RDW Coefficient Variation 13.3 % (11.7-14.2); RDW Standard Deviation 41.7 fL (35.1-46.3)
[2024-12-28 04:18] LABS: Alanine Aminotransfer (ALT/SGP 39.0 U/L (12-78); Albumin, Blood 3.8 g/dL (3.4-5.0); Albumin/Globulin Ratio 1.1 (0.8-1.8); Anion Gap 12.0 mmol/L (3-11); Aspartate Aminotrans (AST/SGOT 37.0 U/L (12-37); Bilirubin, Total 0.4 mg/dL (0.1-1.0); Blood Urea Nitrogen 55.0 mg/dL (8-24); CO2, Blood 13.0 mmol/L (21-32); Calcium, Blood 9.8 mg/dL (8.5-10.1); Chloride, Blood 117.0 mmol/L (98-108); Creatinine, Blood 2.77 mg/dL (0.40-1.00); Globulin, Blood 3.6 g/dL (2.2-4.0); Glucose, Blood 96.0 mg/dL (70-99); Potassium, Blood 5.3 mmol/L (3.5-5.5); Sodium, Blood 137.0 mmol/L (136-145); Total Protein, Blood 7.4 g/dL (6.4-8.2)
[2024-12-28 05:06] LABS: Source, Urine Clean Catch
[2024-12-28 05:08] LABS: Bilirubin, Urine Neg (Neg); Glucose Qualitative, Urine Neg (Neg); Ketones, Urine Neg (Neg); Leukocyte Esterase, Urine 1+ (Neg); Protein, Urine 3+ (Neg); Specific Gravity, Urine 1.020 (1.003-1.022); Urobilinogen, Urine NORM (Normal)
[2024-12-28 05:18] LABS: Color, Urine Yellow (P-Yellow)
[2024-12-28 05:31] LABS: Red Blood Cells, Urine Not Seen /hpf (0-2); White Blood Cells, Urine 0-2 /hpf (0-5)
[2024-12-28] MEDS ORDERED: Ondansetron HCl 2 MG / ML 2ML Vial IV ONE (06:00)
[2024-12-28] MEDS ORDERED: FentaNYL Citrate 50 MCG/ML 2 ML Injection IV ONE (06:00)
[2024-12-28] MEDS ORDERED: NS 1,000 ML IV SCH (06:00)
[2024-12-28] MEDS ORDERED: HYDR1TAB94 PO (08:44)
[2024-12-28] MEDS ORDERED: ONDA4ODT MM (08:44)
[2024-12-28 09:15] VITALS: BP 158/105
== END 2024-12-28 09:34 | disposition home or self-care (01) ==
LOC: ER 01:55
PROVIDERS: Emergency Medicine
DX: R10.30 Lower abdominal pain, unspecified (principal); R19.7 Diarrhea, unspecified; R11.2 Nausea with vomiting, unspecified; I12.9 Hypertensive chronic kidney disease with stage 1 through stage 4 chronic kidney disease, or unspecified chronic kidney disease; N18.9 Chronic kidney disease, unspecified; E86.0 Dehydration
CPT/HCPCS: 74176; 80053; 81001; 83690; 85025; 87086; 96361; 96374; 96375; 99284-25; J2405; J3010; J7030

== ENCOUNTER → 2025-02-27 | Outpatient (CLI) | payer OTHER ==
[~2025-02-27] MED LIST changes: +HYDR1TAB94 PO; +ONDA4ODT MM
[2025-02-27 15:11] LABS: Microalbumin, Urine Quant. 183.0 mg/L (0.000-20.000); Protein, Urine Quantitative 26.1 mg/dL (0.0-11.9)
== END ==
LOC: LAB 13:17 → LAB SHORT 13:17
PROVIDERS: Internal Medicine Nephrology
DX: N18.30 Chronic kidney disease, stage 3 unspecified (principal); D63.1 Anemia in chronic kidney disease; R76.9 Abnormal immunological finding in serum, unspecified; R94.5 Abnormal results of liver function studies; R94.6 Abnormal results of thyroid function studies; N25.81 Secondary hyperparathyroidism of renal origin; E55.9 Vitamin D deficiency, unspecified; E78.00 Pure hypercholesterolemia, unspecified; D51.8 Other vitamin B12 deficiency anemias; D52.8 Other folate deficiency anemias; D50.9 Iron deficiency anemia, unspecified
CPT/HCPCS: 81050; 82043; 82570; 84156